=== PATIENT | male | born 1950 | race Caucasian/White ===

== ENCOUNTER 2016-03-14 16:32 | Emergency (ER) | payer OTHER ==
[2016-03-14 17:13] VITALS: BP 170/88; PULSE 78; RESP 20; O2SAT 95
[2016-03-14 17:14] VITALS: TEMP 99
--- NOTE | 2016-03-14 17:38 | UCPHY ---
H & P Time Seen by Provider: 03/14/16 17:17 Patient Type: New HPI/ROS: 65-year-old male presents complaining of cough nasal congestion fevers chills and body aches for about 7 days duration. He states he had a history of pneumonia approximately 4-5 years ago. He is a nonsmoker Review of systems As per HPI General positive fever positive chills no weakness HEENT no eye pain no eye discharge. No eye redness, no sore throat Respiratory positive cough, no shortness of breath Cardiac no chest pain, no peripheral edema GI no abdominal pain, no diarrhea, no constipation, no nausea, no vomiting no flank pain, no hematuria, no dysuria Musculoskeletal no myalgias, no joint pain Heme no easy bruising, no easy bleeding Endo no polyuria, no polydipsia Skin no rashes, no pruritus Neuro no syncope, no dizziness, no headaches Psych is no suicidal ideation, no homicidal ideation Past Medical/Surgical History: Hyperlipidemia Social History: Smoking Status: Never smoked Physical Exam: 65-year-old male Alert and oriented nontoxic appearance, no acute distress afebrile Atraumatic normocephalic Extraocular muscles intact, anicteric Nares mild yellowish discharge Oropharynx mild erythema no tonsillar swelling no exudate no uvular deviation, tolerating own secretions Neck supple no lymphadenopathy Lungs clear to auscultation bilaterally Heart regular rate and rhythm Abdomen normoactive bowel sounds soft nontender Extremities no cyanosis clubbing or edema Skin no rash Constitutional: Initial Vital Signs Temperature (C) 37.2 C 03/14/16 17:08 Heart Rate 78 03/14/16 17:08 Respiratory Rate 20 03/14/16 17:08 Blood Pressure 170/88 H 03/14/16 17:08 O2 Sat (%) 95 03/14/16 17:08 O2 Delivery Mode Room Air Allergies/Adverse Reactions: No Known Allergies Allergy (Verified 03/14/16 17:13) Home Medications: Medication Instructions Recorded AZITHROMYCIN [Z-PACK] 250 mg PO DAILY #6 tab 03/14/16 Cholesterol Control,High & Low 03/14/16 Medical Decision Making - Diagnostics Imaging: Chest x-ray negative for infiltrate ED Course/Re-evaluation: Patient seen and evaluated for cough fevers chills body aches Influenza negative Chest x-ray negative Differential diagnosis URI, pneumonia, viral syndrome, bronchitis Impression Bronchitis Plan Azithromycin Follow-up PCP - Data Points Laboratory Results: 03/14/16 17:15 Influenza Typ A,B (DFA) NEGATIVE FOR FLU (NEGATIVE) Departure - Departure Disposition: Home, Routine, Self-Care Clinical Impression: Bronchitis Condition: Good Instructions: Acute Bronchitis (ED) Referrals: Jonas Mark DO [Primary Care Provider] - As per Instructions Prescriptions: AZITHROMYCIN [Z-PACK] 250 mg PO DAILY #6 tab - PQRS PQRS Measurement: na
--- NOTE | 2016-03-14 17:57 | DX ---
PA and Lateral Chest Indication: Weakness. Cough. Comparison: Two-view chest dated March 19, 2011 Findings: Lungs are well aerated and clear. No airspace consolidation, edema or effusion. Heart size normal. Minimally tortuous descending thoracic aorta is unchanged. Old minimal compression deformity at T12 is unchanged. Impression: Clear lungs. No pneumonia or acute process.
== END 2016-03-14 18:12 | disposition home or self-care (01) ==
LOC: CED 16:32
DX: R05 Cough (principal); R09.81 Nasal congestion; R50.9 Fever, unspecified; M79.1 Myalgia; E78.5 Hyperlipidemia, unspecified
CPT/HCPCS: 71020-PO; 87400-PO; G0463-PO